=== PATIENT | female | born 1950 | race African-American/Black ===

== ENCOUNTER → 2016-11-20 | Outpatient (CLI) | payer MEDICARE ==
[2015-08-30 11:00] VITALS: BP 104/56
[~2016-11-20] MED LIST: ATEN50TA PO; CALC-128 PO; CHOL20004 PO; CYAN10005 PO; FOLI1TAB16 PO; GUAI1TAB PO; LISI10TA2 PO; PARO40TA2 PO; RANI75TA12 PO; SIMV10TA3 PO
== END | disposition home or self-care (01) ==
LOC: KCIC MAMMO 09:03
PROVIDERS: ATTEND Obstetrics & Gynecology
DX: Z12.31 Encounter for screening mammogram for malignant neoplasm of breast (principal)
CPT/HCPCS: G0202; 77067

== ENCOUNTER 2017-05-15 13:57 | Emergency (ER) | payer MEDICARE ==
[~2017-05-15] VITALS: Ht 162.6 cm; Wt 72.6 kg
[~2017-05-15 13:57] MED LIST changes: -CHOL20004 PO; +CHOL200074 PO; -PARO40TA2 PO; +PARO40TA3 PO
[2017-05-15] MEDS ORDERED: ATEN-57 PO (14:17)
--- NOTE | 2017-05-15 14:36 | PHYS DOC ---
Past Medical History Past Medical History: Anxiety, Hypertension Past Surgical History: , Hysterectomy, Other Additional Past Surgical Histo: "KNOT" L WRIST, "FATTY TISSUE" BACK/L ARM Alcohol Use: None Drug Use: None Adult General Chief Complaint Chief Complaint: HYPOTENSION HPI HPI Patient is a 66 year old female who presents with low blood pressure after taking extra clonidine that would normally be taken for hot flashes due to the fact she ran out of her atenolol and apparently there is a citywide shortage of atenolol. Patient is asymptomatic now. Denies chest pain shortness of breath headache blurry vision numbness tingling or weakness to the arms or legs. Review of Systems Review of Systems Constitutional: Denies fever or chills [] Eyes: Denies change in visual acuity, redness, or eye pain [] HENT: Denies nasal congestion or sore throat [] Respiratory: Denies cough or shortness of breath [] Cardiovascular: No additional information not addressed in HPI [] GI: Denies abdominal pain, nausea, vomiting, bloody stools or diarrhea [] : Denies dysuria or hematuria [] Musculoskeletal: Denies back pain or joint pain [] Integument: Denies rash or skin lesions [] Neurologic: Denies headache, focal weakness or sensory changes [] Endocrine: Denies polyuria or polydipsia [] Allergies Allergies Allergies Coded Allergies Type Severity Reaction Last Updated Verified Sulfa (Sulfonamide Antibiotics) Allergy Intermediate 08/28/15 Yes ibuprofen Allergy Intermediate 08/28/15 Yes Physical Exam Physical Exam Constitutional: Well developed, well nourished, no acute distress, non-toxic appearance. [] HENT: Normocephalic, atraumatic, bilateral external ears normal, oropharynx moist, no oral exudates, nose normal. [] Eyes: PERRLA, EOMI, conjunctiva normal, no discharge. [] Neck: Normal range of motion, no tenderness, supple, no stridor. [] Cardiovascular:Heart rate regular rhythm, no murmur [] Lungs & Thorax: Bilateral breath sounds clear to auscultation [] Abdomen: Bowel sounds normal, soft, no tenderness, no masses, no pulsatile masses. [] Skin: Warm, dry, no erythema, no rash. [] Back: No tenderness, no CVA tenderness. [] Extremities: No tenderness, no cyanosis, no clubbing, ROM intact, no edema. [] Neurologic: Alert and oriented X 3, normal motor function, normal sensory function, no focal deficits noted. [] Psychologic: Affect normal, judgement normal, mood normal. [] Current Patient Data Vital Signs Vital Signs Date Time Temp Pulse Resp B/P (MAP) Pulse Ox O2 Delivery O2 Flow Rate FiO2 05/15/17 15:12 60 18 154/73 (100) 99 Room Air 05/15/17 14:05 97.7 97.7 EKG EKG Normal sinus rhythm rate of 66 no STEMI QTC normal my interpretation [] Radiology/Procedures Radiology/Procedures [] Course & Med Decision Making Course & Med Decision Making Pertinent Labs and Imaging studies reviewed. (See chart for details) Currently blood patient's blood pressures 150/90. Counseled her regarding not taking extra clonidine. We will switch from atenolol to some equivalent using metoprolol. [] Dragon Disclaimer Dragon Disclaimer This electronic medical record was generated, in whole or in part, using a voice recognition dictation system. Departure Departure Impression: Primary Impression: Antihypertensive adverse reaction Disposition: 01 HOME, SELF-CARE Condition: IMPROVED Referrals: NO PCP (PCP) Patient Instructions: Hypertension Scripts Metoprolol Succinate (Metoprolol Succinate) 50 Mg Tab.er.24h 50 MG PO DAILY for 30 Days, #30 TAB.SR 2 Refills Prov: MICHAELA PRICE MD 05/15/17 MICHAELA PRICE MD May 15, 2017 14:36
[2017-05-15] MEDS ORDERED: METO50TA10 PO (14:56)
[2017-05-15 15:12] VITALS: BP 154/73
--- NOTE | 2017-05-16 13:28 | EKG ---
[facility] [address] [place] [address] Test Date: 2017-05-15 Test Time: 14:03:04 Pat Name: CHERY NIEVES Department: Room: Gender: F Hospital Product Specialist: : 1950 Requested By: MICHAELA PRICE Order Number: [id number] Reading MD: Wally Kingston Measurements Intervals [place] Rate: 66 P: 64 CO: 176 QRS: -16 QRSD: 80 T: 21 QT: 402 QTc: 423 Interpretive Statements SINUS RHYTHM NON-SPECIFIC ST/T CHANGES Electronically Signed On 05-17-2017 11:54:59 CDT by Wally Kingston
== END 2017-05-15 15:15 | disposition home or self-care (01) ==
LOC: ER 13:57
DX: I95.9 Hypotension, unspecified (principal); T46.5X5A Adverse effect of other antihypertensive drugs, initial encounter; I10 Essential (primary) hypertension; F41.9 Anxiety disorder, unspecified; Z90.710 Acquired absence of both cervix and uterus; Y92.89 Other specified places as the place of occurrence of the external cause
CPT/HCPCS: 93005; 99283-25

== ENCOUNTER → 2018-07-01 | Outpatient (CLI) | payer MEDICARE ==
[~2018-07-01] MED LIST changes: +ATEN-57 PO; +METO50TA29 PO
--- NOTE | 2018-07-01 12:48 | KCIC ---
EXAM: Bilateral digital screening mammogram with tomosynthesis. HISTORY: 67-year-old female presents for screening mammography. TECHNIQUE: Full-field digital craniocaudal and mediolateral oblique 2D and 3D tomosynthesis images of both breasts are obtained for evaluation. Computer aided detection with [employer] software version 9.3 was applied. COMPARISON: 11/20/2016 BREAST PARENCHYMAL DENSITY: Level D - Extremely dense. FINDINGS: There is no new suspicious mass, microcalcification or region of architectural distortion. IMPRESSION: BI-RADS Category 2: Benign finding(s). RECOMMENDATION: Annual mammography is recommended. If your mammogram demonstrates that you have dense breast tissue, which could hide abnormalities, and if you have other risk factors for breast cancer that have been identified, you might benefit from supplemental screening tests that may be suggested by your ordering physician. Dense breast tissue, in and of itself, is a relatively common condition. This information is not provided to cause undue concern, but rather to raise your awareness and to promote discussion with your physician regarding the presence of other risk factors, in addition to dense breast tissue. A report of your mammography results will be sent to you and your physician. You should contact your physician if you have any questions or concerns regarding this report. Mammography is a sensitive method for finding small breast cancers, but it does not detect them all and is not a substitute for careful clinical examination. A negative mammogram does not negate a clinically suspicious finding and should not result in delay in biopsying a clinically suspicious abnormality. PQRS compliance statement - Patient information was entered into a reminder system with a target due date for the next mammogram. "Our facility is accredited by the [employer] Mammography Program." Electronically signed by: Roma Parker MD (07/01/2018 12:45 PM) [id number]
== END | disposition home or self-care (01) ==
LOC: KCIC MAMMO 11:19
PROVIDERS: ATTEND Obstetrics & Gynecology
DX: Z12.31 Encounter for screening mammogram for malignant neoplasm of breast (principal)
CPT/HCPCS: 77063; 77067

== ENCOUNTER 2019-08-03 13:44 | Emergency (ER) | payer MEDICARE ==
[~2019-08-03] VITALS: Ht 162.6 cm; Wt 72.6 kg
[~2019-08-03 13:44] MED LIST changes: +CYAN-25 PO; -CYAN10005 PO; -RANI75TA12 PO; +RANI75TA89 PO; +SIMV10TA15 PO; -SIMV10TA3 PO
[2019-08-03 14:35] LABS: BILIRUBIN,URINE NEGATIVE (NEG); CLARITY,URINE CLEAR; COLOR,URINE YELLOW; NITRITE,URINE NEGATIVE (NEG); PROTEIN,URINE NEGATIVE (NEG-TRACE); UROBILINOGEN,URINE 0.2 mg/dL (0.2 mg/dL)
[2019-08-03 14:42] LABS: SQUAMOUS EPITHELIAL CELL,UR MOD /LPF
[2019-08-03 14:43] LABS: BACTERIA,URINE MANY /HPF (0-FEW); RBC,URINE OCC /HPF (0-2); WBC,URINE >40 /HPF (0-4)
--- NOTE | 2019-08-03 15:14 | RAD ---
Examination: CT HEAD WO CONTRAST History: Dizziness and weakness Comparison/Correlation: 08/28/2015 CT head without contrast Findings: Axial images were obtained without contrast. Chronic ischemic changes of the white matter are noted. No intracranial hemorrhage, midline shift, or mass effect. Bony structures are unremarkable. Impression: No suspicious process. No significant change. PQRS Compliance Statement: One or more of the following individualized dose reduction techniques were utilized for this examination: 1. Automated exposure control 2. Adjustment of the mA and/or kV according to patient size 3. Use of iterative reconstruction technique Electronically signed by: Brandon Trevino MD (08/03/2019 3:11 PM) [facility]
--- NOTE | 2019-08-03 15:15 | EKG ---
[facility] [address] [place] [address] Test Date: 2019-08-03 Test Time: 14:54:33 Pat Name: CHERY NIEVES Department: Room: Gender: F Line Supply: : 1950 Requested By: CATHI GREY Order Number: [id number] Reading MD: Measurements Intervals [place] Rate: 65 P: 55 UT: 168 QRS: -24 QRSD: 76 T: 28 QT: 412 QTc: 433 Interpretive Statements SINUS RHYTHM LEFT ATRIAL ABNORMALITY LEFTWARD AXIS ABNORMAL ECG No previous ECG available for comparison
--- NOTE | 2019-08-03 15:23 | RAD ---
PORTABLE CHEST 1V History: Generalized weakness Comparison: August 28, 2015 Findings: Single view of the chest is submitted. There is no infiltrate, pneumothorax, or effusion. The pericardial cardiac silhouette is within normal limits in size. There is some atherosclerotic calcification near the aortic arch. Impression: 1. There is no radiographic evidence of acute cardiopulmonary disease. Electronically signed by: Bernard Isaac MD (08/03/2019 3:20 PM) [facility]
[2019-08-03] MEDS ORDERED: hydrALAZINE 20 MG/ML VIAL. IVP ONE (16:00)
[2019-08-03 16:06] LABS: PROTHROMBIN TIME PATIENT 12.6 SEC (11.7-14.0)
[2019-08-03 16:08] LABS: BASO # 0.1 x10^3/uL (0.0-0.2); BASO % 1 % (0-3); EOS # 0.2 x10^3/uL (0.0-0.7); EOS % 3 % (0-3); HEMATOCRIT 40.3 % (36.0-47.0); HEMOGLOBIN 13.4 g/dL (12.0-15.5); LYMPH # 2.4 x10^3/uL (1.0-4.8); LYMPH % 28 % (24-48); MEAN CORPUSCULAR HEMOGLOBIN 29 pg (25-35); MEAN CORPUSCULAR HGB CONC 33 g/dL (31-37); MEAN CORPUSCULAR VOLUME 86 fL (79-100); MONO # 0.8 x10^3/uL (0.0-1.1); MONO % 9 % (0-9); NEUT # 5.2 x10^3/uL (1.8-7.7); NEUT % 60 % (31-73); PLATELET COUNT 253 x10^3/uL (140-400); RED CELL DISTRIBUTION WIDTH 14.3 % (11.5-14.5); WHITE BLOOD COUNT 8.7 x10^3/uL (4.0-11.0)
[2019-08-03] MEDS ORDERED: fentaNYL PF VIAL 100 MCG/2 ML VIAL IVP ONE (16:15)
[2019-08-03 16:18] LABS: CALCIUM 9.8 mg/dL (8.5-10.1); CREATININE 0.7 mg/dL (0.6-1.0); GFR 100.7
[2019-08-03 16:30] LABS: ALBUMIN 4.4 g/dL (3.4-5.0); ALBUMIN/GLOBULIN RATIO 1.1 (1.0-1.7); MAGNESIUM 2.1 mg/dL (1.8-2.4); TOTAL BILIRUBIN 0.4 mg/dL (0.2-1.0); TOTAL PROTEIN 8.5 g/dL (6.4-8.2)
--- NOTE | 2019-08-03 16:38 | PHYS DOC ---
Past Medical History Past Medical History: Anxiety, Fibromyalgia, Hypertension Past Surgical History: , Hysterectomy, Other Additional Past Surgical Histo: "KNOT" L WRIST, "FATTY TISSUE" BACK/L ARM Alcohol Use: None Drug Use: None Adult General Chief Complaint Chief Complaint: WEAKNESS/GENERALIZED HPI HPI 68-year-old female patient with history of hypertension and anxiety presented via EMS with complaining of near-syncope and generalized weakness and high blood pressure. Patient states for the last 3 days she has had constant right frontal headache as a sharp pain and rated her pain 8/10. Patient states her blood pressure was 188 which time she checked her blood pressure even she took her blood pressure medication for the last 3 days. Patient states she had generalized weakness without nausea, focal neuro deficit, chest pain, nausea vomiting, abdominal pain. Patient complaining of shortness of breath and states she had near syncopal episode today while she was at work without loss of consciousness. Patient complaining of urinary frequency and dysuria for the last couple days and states she feels she is going to have UTI. Review of Systems Review of Systems Constitutional: Denies fever or chills [] Eyes: Denies change in visual acuity, redness, or eye pain [] HENT: Denies nasal congestion or sore throat [] Respiratory: Denies cough, reports shortness of breath [] Cardiovascular: No additional information not addressed in HPI [] GI: Denies abdominal pain, nausea, vomiting, bloody stools or diarrhea [] : Reports urinary frequency and dysuria Musculoskeletal: Denies back pain or joint pain [] Integument: Denies rash or skin lesions [] Neurologic: Denies focal weakness or sensory changes, reports take Endocrine: Denies polyuria or polydipsia [] All other systems were reviewed and found to be within normal limits, except as documented in this note. Current Medications Current Medications Current Medications Medications (Trade) Dose Ordered Sig/Yoselyn Start Time Stop Time Status Last Admin Dose Admin Ceftriaxone Sodium (Rocephin) 1 gm 1X ONCE 08/03/19 17:00 08/03/19 17:01 Fentanyl Citrate (Fentanyl 2ml Vial) 50 mcg 1X ONCE 08/03/19 16:15 08/03/19 16:16 DC 08/03/19 16:42 50 MCG Hydralazine HCl (Apresoline Inj) 10 mg 1X ONCE 08/03/19 16:00 08/03/19 16:01 DC 08/03/19 15:57 10 MG Allergies Allergies Allergies Coded Allergies Type Severity Reaction Last Updated Verified Sulfa (Sulfonamide Antibiotics) Allergy Intermediate 08/28/15 Yes ibuprofen Allergy Intermediate 08/28/15 Yes Physical Exam Physical Exam Constitutional: Well developed, well nourished, mild distress, non-toxic appearance. [] HENT: Normocephalic, atraumatic, bilateral external ears normal, oropharynx moist, no oral exudates, nose normal. [] Eyes: PERRLA, EOMI, conjunctiva normal, no discharge. [] Neck: Normal range of motion, no tenderness, supple, no stridor. [] Cardiovascular:Heart rate regular rhythm, no murmur [] Lungs & Thorax: Bilateral breath sounds clear to auscultation [] Abdomen: Bowel sounds normal, soft, no tenderness, no masses, no pulsatile mas ses. [] Skin: Warm, dry, no erythema, no rash. [] Back: No tenderness, no CVA tenderness. [] Extremities: No tenderness, no cyanosis, no clubbing, ROM intact, no edema. [] Neurologic: Alert and oriented X 3, normal motor function, normal sensory function, no focal deficits noted. [] Psychologic: Affect normal, judgement normal, mood normal. [] Current Patient Data Vital Signs Vital Signs Date Time Temp Pulse Resp B/P (MAP) Pulse Ox O2 Delivery O2 Flow Rate FiO2 08/03/19 16:42 24 99 Room Air 08/03/19 15:57 65 222/105 08/03/19 13:44 98.0 98.0 Lab Values Laboratory Tests Test 08/03/19 14:00 08/03/19 15:47 08/03/19 16:00 Urine Collection Type Unknown Urine Color Yellow Urine Clarity Clear Urine pH 7.0 Urine Specific [place] 1.015 Urine Protein Negative mg/dL (NEG-TRACE) Urine Glucose (UA) Negative mg/dL (NEG) Urine Ketones (Stick) Negative mg/dL (NEG) Urine Blood Negative (NEG) Urine Nitrite Negative (NEG) Urine Bilirubin Negative (NEG) Urine Urobilinogen Dipstick 0.2 mg/dL (0.2 mg/dL) Urine Leukocyte Esterase Large (NEG) Urine RBC Occ /HPF (0-2) Urine WBC >40 /HPF (0-4) Urine Squamous Epithelial Cells Mod /LPF Urine Bacteria Many /HPF (0-FEW) Urine Mucus Mod /LPF White Blood Count 8.7 x10^3/uL (4.0-11.0) Red Blood Count 4.70 x10^6/uL (3.50-5.40) Hemoglobin 13.4 g/dL (12.0-15.5) Hematocrit 40.3 % (36.0-47.0) Mean Corpuscular Volume 86 fL (79-100) Mean Corpuscular Hemoglobin 29 pg (25-35) Mean Corpuscular Hemoglobin Concent 33 g/dL (31-37) Red Cell Distribution Width 14.3 % (11.5-14.5) Platelet Count 253 x10^3/uL (140-400) Neutrophils (%) (Auto) 60 % (31-73) Lymphocytes (%) (Auto) 28 % (24-48) Monocytes (%) (Auto) 9 % (0-9) Eosinophils (%) (Auto) 3 % (0-3) Basophils (%) (Auto) 1 % (0-3) Neutrophils # (Auto) 5.2 x10^3/uL (1.8-7.7) Lymphocytes # (Auto) 2.4 x10^3/uL (1.0-4.8) Monocytes # (Auto) 0.8 x10^3/uL (0.0-1.1) Eosinophils # (Auto) 0.2 x10^3/uL (0.0-0.7) Basophils # (Auto) 0.1 x10^3/uL (0.0-0.2) Platelet Estimate Pending Prothrombin Time 12.6 SEC (11.7-14.0) Prothrombin Time INR 1.0 (0.8-1.1) Sodium Level 142 mmol/L (136-145) Potassium Level 4.0 mmol/L (3.5-5.1) Chloride Level 103 mmol/L (98-107) Carbon Dioxide Level 25 mmol/L (21-32) Anion Gap 14 (6-14) Blood Urea Nitrogen 9 mg/dL (7-20) Creatinine 0.7 mg/dL (0.6-1.0) Estimated GFR (Cockcroft-Gault) 100.7 BUN/Creatinine Ratio 13 (6-20) Glucose Level 83 mg/dL (70-99) Calcium Level 9.8 mg/dL (8.5-10.1) Magnesium Level 2.1 mg/dL (1.8-2.4) Total Bilirubin 0.4 mg/dL (0.2-1.0) Aspartate Amino Transferase (AST) 21 U/L (15-37) Alanine Aminotransferase (ALT) 15 U/L (14-59) Alkaline Phosphatase 108 U/L (46-116) Creatine Kinase 190 U/L (26-192) Troponin I Quantitative < 0.017 ng/mL (0.000-0.055) Total Protein 8.5 g/dL (6.4-8.2) H Albumin 4.4 g/dL (3.4-5.0) Albumin/Globulin Ratio 1.1 (1.0-1.7) Lactic Acid Level 1.0 mmol/L (0.4-2.0) Laboratory Tests 08/03/19 15:47 Laboratory Tests 08/03/19 15:47 EKG EKG EKG interpreted by me. EKG at 1455 showed normal sinus rhythm at rate of 65, left atrial abnormality, left ortiz axis, normal HI and QT intervals, no acute ST and T-wave elevation. Radiology/Procedures Radiology/Procedures [facility] [address] [place], [place] [id number] IMAGING REPORT Signed PATIENT: CHERY NIEVES ACCOUNT: [id number] : 1950 LOCATION: ER AGE: 68 SEX: F EXAM STATUS: REG ER ORD. PHYSICIAN: CATHI GREY MD REASON: generalized weakness/ LABS @ 1430 PROCEDURE: PORTABLE CHEST 1V PORTABLE CHEST 1V History: Generalized weakness Comparison: August 28, 2015 Findings: Single view of the chest is submitted. There is no infiltrate, pneumothorax, or effusion. The pericardial cardiac silhouette is within normal limits in size. There is some atherosclerotic calcification near the aortic arch. Impression: 1. There is no radiographic evidence of acute cardiopulmonary disease. Electronically signed by: Susan Isaac MD (08/03/2019 3:20 PM) [facility] DICTATED and SIGNED BY: SUSAN ISAAC MD DATE: 08/03/19 1520 [facility] [address] [place] [address] IMAGING REPORT Signed PATIENT: CHERY NIEVES ACCOUNT: [id number] : 1950 LOCATION: ER AGE: 68 SEX: F EXAM STATUS: REG ER ORD. PHYSICIAN: CATHI GREY MD REASON: generalized weakness PROCEDURE: CT HEAD WO CONTRAST Examination: CT HEAD WO CONTRAST History: Dizziness and weakness Comparison/Correlation: 08/28/2015 CT head without contrast Findings: Axial images were obtained without contrast. Chronic ischemic changes of the white matter are noted. No intracranial hemorrhage, midline shift, or mass effect. Bony structures are unremarkable. Impression: No suspicious process. No significant change. PQRS Compliance Statement: One or more of the following individualized dose reduction techniques were utilized for this examination: 1. Automated exposure control 2. Adjustment of the mA and/or kV according to patient size 3. Use of iterative reconstruction technique Electronically signed by: Brandon Louis MD (08/03/2019 3:11 PM) [facility] DICTATED and SIGNED BY: BRANDON LOUIS MD DATE: 08/03/19 1511 Course & Med Decision Making Course & Med Decision Making Pertinent Labs and Imaging studies reviewed. (See chart for details) Evaluation of patient in ER showed 68 years old female patient with complaining of elevation of blood pressure and headache and urinary frequency and dysuria and generalized weakness and near syncope. Patient had unremarkable physical exam. Patient had blood pressure more than 220 arrival to ER that improved with hydralazine and fentanyl. Patient had unremarkable labs and lactic acid and cardiac enzyme and EKG and CT head and chest x-ray. Patient had UTI and treated with IV Rocephin in ER. Plan discharge patient home to diagnose of urinary tract infection, hypertensive emergency, headache. I've spoken with the patient and/or caregivers. I've explained the patient's condition, diagnosis and treatment plan based on information available to me at this time. I've answered the patient's and/or caregivers questions and addressed any concerns. The patient and/or caregivers have a good understanding the patient's diagnosis, condition and treatment plan as can be expected at this point. Vital signs have been stabilized. The patient's condition is stable for discharge from the emergency department. The patient will pursue further outpatient evaluation with her primary care pr ovider or other designated consulting physician as outlined in the discharge instructions. Patient and/or caregivers are agreeable to this plan of care and follow-up instructions have been explained in detail. The patient and/or caregivers have received these instructions in written format and expressed understanding of these discharge instructions. The patient and her caregivers are aware that if any significant change in condition or worsening of symptoms should prompt him to immediately return to this of the closest emergency department. If an emergent department is not readily available I would encourage him to call 911. Dragon Disclaimer Dragon Disclaimer This electronic medical record was generated, in whole or in part, using a voice recognition dictation system. Departure Departure Impression: Primary Impression: Hypertensive urgency Additional Impressions: Urinary tract infection Near syncope Headache Disposition: HOME, SELF-CARE (at 1708) Condition: IMPROVED Referrals: GUCCI SARGENT MD (PCP) Patient Instructions: Form - Blood Pressure Record Sheet, How to Take Your Blood Pressure, [id number], Managing Your High Blood Pressure, Near-Syncope, Urinary Tract Infection Additional Instructions: Drink plenty of liquids Follow-up with your primary care physician in 3-5 days Return to ER if not getting better Scripts Tramadol Hcl (ULTRAM) 50 Mg Tablet 50 MG PO Q6HRS PRN for PAIN, #14 TAB 0 Refills Prov: CATHI GREY MD 08/03/19 Phenazopyridine Hcl (PYRIDIUM) 100 Mg Tablet 100 MG PO TID for dysuria, #10 TAB Prov: CATHI GREY MD 08/03/19 Ciprofloxacin Hcl (CIPRO) 250 Mg Tablet 1 TAB PO BID for infection, #14 TAB Prov: CATHI GREY MD 08/03/19 Problem Qualifiers Additional Impressions: Urinary tract infection Urinary tract infection type: acute cystitis Hematuria presence: without hematuria Qualified Codes: N30.00 - Acute cystitis without hematuria Headache Headache type: unspecified Headache chronicity pattern: unspecified pattern Intractability: not intractable Qualified Codes: R51 - Headache CATHI GREY MD Aug 03, 2019 16:38
[2019-08-03] MEDS ORDERED: cefTRIAXone IV Push 1 GM VIAL. IVP ONE (17:00)
[2019-08-03] MEDS ORDERED: TRAM-48 PO (17:11)
[2019-08-03] MEDS ORDERED: CIPR250T30 PO (17:11)
[2019-08-03] MEDS ORDERED: PHEN100T82 PO (17:11)
[2019-08-03] MEDS ORDERED: ONDANSETRON PF 4 MG/2 ML VIAL. IV ONE (17:30)
[2019-08-03 17:44] VITALS: BP 143/68
[2019-08-03 18:10] LABS: PLT ESTIMATE ADEQUATE (ADEQUATE)
== END 2019-08-03 18:04 | disposition home or self-care (01) ==
LOC: ER 13:44
DX: N30.00 Acute cystitis without hematuria (principal); R51 Headache; R55 Syncope and collapse; I16.0 Hypertensive urgency; F41.9 Anxiety disorder, unspecified; M79.7 Fibromyalgia; Z88.8 Allergy status to other drugs, medicaments and biological substances; Z88.2 Allergy status to sulfonamides
CPT/HCPCS: 36415; 70450; 71045; 80053; 81001; 82550; 83605; 83735; 84484; 85025; 85610; 87040; 87086; 93005; 96374; 96375; 99285; J0360; J0696; J2405; J3010